=== PATIENT | female | born 1990 | race African-American/Black ===

== ENCOUNTER 2022-09-23 04:51 | Inpatient (IN) ==
[2022-09-23] MEDS ORDERED: METHYLERGONOVINE 0.2 MG/1 ML AMP IM PRN (05:01)
[2022-09-23] MEDS ORDERED: CITRIC ACID/SODIUM CITRATE 30 ML UDCUP PO ONE (05:01)
[2022-09-23] MEDS ORDERED: miSOPROStoL 200 MCG TABLET RECTAL PRN (05:01)
[2022-09-23] MEDS ORDERED: OXYTOCIN/LR 20 UNIT/1,000 ML BAG IV ONE ×2 (05:01→14:09)
[2022-09-23] MEDS ORDERED: TRANEXAMIC ACID 1,000 MG in SODIUM CHLORIDE 0.9% 100 ML IV PRN (05:01)
[2022-09-23] MEDS ORDERED: FAMOTIDINE 20 MG/2 ML VIAL IV ONE (05:01)
[2022-09-23] MEDS ORDERED: CARBOPROST TROMETHAMINE 250 MCG/ML AMP IM PRN (05:01)
[2022-09-23] MEDS ORDERED: LACTATED RINGERS 1,000 ML IV SCH (05:30)
[2022-09-23] MEDS ORDERED: miSOPROStoL 200 MCG TABLET ONE (05:39)
[2022-09-23 05:50] LABS: Basophils # 0.1 10*3/uL (0.0-0.2); Basophils % 0.5 % (0.0-0.8); Eosinophils # 0.1 10*3/uL (0.0-0.87); Eosinophils % 1.2 % (0.00-10.9); Hematocrit 33.5 VOL% (35.7-47.0); Hemoglobin 10.6 GM/DL (12.0-16.0); Immature Granulocytes % 0.5 %; Immature Granulocytes Absolute 0.05 #; Lymphocytes # 2.6 10*3/uL (1.4-4.0); Mean Corpuscular HGB Conc 31.6 GM/DL (32-36); Mean Corpuscular Volume 76.8 FL (87-102); Mean Platelet Volume 9.4 FL (9.6-12.0); Monocytes # 0.8 10*3/uL (0.11-0.8); NRBC # 0.03 10*3/uL; Neutrophils % 62.8 % (38.7-73.9); Platelet Count 379 T/CUMM (130-400); Red Blood Count 4.36 MC/CUMM (3.8-5.5); Red Cell Distribution Width 15.2 % (9.3-17.3); White Blood Count 9.4 T/CUMM (4-12)
[2022-09-23] MEDS ORDERED: buprenorphine HCL 0.3 MG/ML VIAL ONE (06:55)
[2022-09-23] MEDS ORDERED: ePHEDrine 50 MG/ML VIAL ONE (07:50)
[2022-09-23] MEDS ORDERED: ONDANSETRON 4 MG/2 ML VIAL ONE (08:02)
[2022-09-23] MEDS ORDERED: PHENYLEPHRINE 1 MG/10 ML SYRINGE IV ONE (08:11)
[2022-09-23] MEDS ORDERED: ACETAMINOPHEN INJ 1,000 MG/100 ML VIAL IV ONE (08:11)
[2022-09-23 08:20] LABS: Cord Arterial Blood HCO3 19.7 MMOL/L
[2022-09-23 08:23] LABS: Cord Venous Blood HCO3 20.5 MMOL/L; Cord Venous Blood PCO2 52.2 MMHG; Cord Venous Blood PO2 23.3
[2022-09-23 08:25] LABS: Bacteria,Urine Occasional /HPF (Few); Mucus,Urine Occasional /LPF (Occasional); RBC,Urine <1 /HPF (0-4); Squamous Epithelial Cell,Urine Occasional /HPF (0-10)
[2022-09-23 08:26] LABS: Bilirubin,Urine Negative (Negative); Blood, Urine Negative (Negative); Glucose,Urine (UA) Negative (Negative); Ketones,Urine Negative (Negative); Nitrite,Urine Negative (Negative); Protein,Urine Negative (Negative); Urine Appearance Clear (Clear); Urine Color Yellow (Yellow); Urine Urobilinogen 0.2 eU/dL (<2.0); Urine pH 6.5 (4.5-8.0)
[2022-09-23] MEDS ORDERED: KETOROLAC 30 MG/1 ML VIAL ONE (08:27)
[2022-09-23] MEDS ORDERED: BISACODYL 10 MG SUPP RECTAL PRN (14:09)
[2022-09-23] MEDS ORDERED: DOCUSATE SODIUM 100 MG CAPSULE PO SCH (14:09)
[2022-09-23] MEDS ORDERED: MEASLES/MUMPS/RUBELLA VACCINE 0.5 ML VIAL SUBCUT ONE (14:09)
[2022-09-23] MEDS ORDERED: RHO(D) IMMUNE GLOBULIN 300 MCG SYRINGE IM ONE (14:09)
[2022-09-23] MEDS ORDERED: WITCH HAZEL PADS 100/JAR TOP PRN (14:09)
[2022-09-23] MEDS ORDERED: oxyCODONE/ACETAMINOPHEN 5-325 MG TABLET PO PRN (14:09)
[2022-09-23] MEDS ORDERED: DIPH/TET/ACEL PERT BOOSTER VACCINE 0.5 ML VIAL IM ONE (14:09)
[2022-09-23] MEDS ORDERED: ONDANSETRON 4 MG/2 ML VIAL IV PRN (14:09)
[2022-09-23] MEDS ORDERED: ACETAMINOPHEN 325 MG TABLET PO PRN (14:09)
[2022-09-23] MEDS ORDERED: LANOLIN 50% CREAM 0.3 OZ TUBE TOP PRN (14:09)
[2022-09-23] MEDS ORDERED: HYDROCORTISONE 2.5% RECTAL CREAM 30 GM TUBE TOP PRN (14:09)
[2022-09-23] MEDS ORDERED: BENZOCAINE 20%/MENTHOL 0.5% SPRAY 56 GM CAN TOP PRN (14:09)
[2022-09-23] MEDS: ACETAMINOPHEN 500 MG TABLET PO SCH (14:20)
[2022-09-23] MEDS: ceFAZolin 2,000 MG/50 ML DUPLEX IV SCH (16:58)
[2022-09-23] MEDS: DOCUSATE SODIUM 100 MG CAPSULE PO SCH (23:38)
[2022-09-24] MEDS: ceFAZolin 2,000 MG/50 ML DUPLEX IV SCH (00:29)
[2022-09-24] MEDS: ACETAMINOPHEN 500 MG TABLET PO SCH (01:14)
[2022-09-24] MEDS: oxyCODONE/ACETAMINOPHEN 5-325 MG TABLET PO PRN ×2 (04:08→21:45)
[2022-09-24 05:30] LABS: Basophils # 0.1 10*3/uL (0.0-0.2); Basophils % 0.5 % (0.0-0.8); Eosinophils # 0.1 10*3/uL (0.0-0.87); Eosinophils % 0.8 % (0.00-10.9); Hematocrit 23.9 VOL% (35.7-47.0); Hemoglobin 7.7 GM/DL (12.0-16.0); Immature Granulocytes % 0.6 %; Immature Granulocytes Absolute 0.07 #; Lymphocytes # 2.3 10*3/uL (1.4-4.0); Lymphocytes % 21.2 % (21.3-54.2); Mean Corpuscular HGB Conc 32.2 GM/DL (32-36); Mean Corpuscular Volume 77.3 FL (87-102); Mean Platelet Volume 9.5 FL (9.6-12.0); Monocytes # 0.8 10*3/uL (0.11-0.8); Monocytes % 6.9 % (1.7-12.7); Platelet Count 306 T/CUMM (130-400); Red Blood Count 3.09 MC/CUMM (3.8-5.5); Red Cell Distribution Width 15.2 % (9.3-17.3); White Blood Count 10.9 T/CUMM (4-12)
[2022-09-24] MEDS: DOCUSATE SODIUM 100 MG CAPSULE PO SCH ×2 (10:00→21:28)
[2022-09-24] MEDS: IRON (CARBONYL)/VIT C/B12/FA TABLET PO SCH (10:00)
[2022-09-24] MEDS: IBUPROFEN 800 MG TABLET PO PRN ×2 (10:00→17:45)
[2022-09-25] MEDS: DOCUSATE SODIUM 100 MG CAPSULE PO SCH (09:28)
[2022-09-25] MEDS: IRON (CARBONYL)/VIT C/B12/FA TABLET PO SCH (09:28)
[2022-09-25] MEDS: oxyCODONE/ACETAMINOPHEN 5-325 MG TABLET PO PRN (09:31)
[2022-09-25 10:38] VITALS: BP 117/61
== END 2022-09-25 10:50 | disposition home or self-care (01) | DRG 788 ==
LOC: N.LD 04:51 → N.OB 14:30
PROVIDERS: ADMIT Specialist; ATTEND Specialist
PROC: LDCSECT (ICD-10-PCS; 2022-09-23 07:30)